=== PATIENT | male | born 1975 | race Caucasian/White ===

== ENCOUNTER 2017-02-08 07:36 | Emergency (ER) | payer OTHER, BC ==
[~2017-02-08] VITALS: Ht 167.6 cm; Wt 69.8 kg
[~2017-02-08 07:36] MED LIST: ADVIL200 MG PO; ALPHA-LIPOIC A300 MG PO; DHEA25 M1 PO; FENUGREEK500 MG PO; FISH OIL 1,2001 EAC4 PO; GINKGO BILOBA120 M1 PO; GINSENG PO; GLUCOSAMINE/1 TABLET PO; GUAIFENESIN600 M1 PO; HORNY GOAT WEED PO; MEN'S MULTI-VI1 EACH PO; PROBIOTIC DIGE1 EACH PO; ST. JOHN'S WOR300 MG PO; [UNRECOGNIZED DRUG - OTHER] PO
[2017-02-08] MEDS ORDERED: MOTRIN800 MG PO (08:32)
[2017-02-08 08:38] VITALS: BP 126/75
== END 2017-02-08 08:56 | disposition home or self-care (01) ==
LOC: EME 07:36
DX: S50.11XA Contusion of right forearm, initial encounter (principal); W01.0XXA Fall on same level from slipping, tripping and stumbling without subsequent striking against object, initial encounter; Y99.0 Civilian activity done for income or pay
CPT/HCPCS: 73090; 99281; 99284